=== PATIENT | female | born 1990 | race Caucasian/White ===

== ENCOUNTER 2022-11-02 08:26 | Emergency (ER) | payer MEDICAID ==
[~2022-11-02] VITALS: Ht 160 cm; Wt 90.0 kg
[2022-11-02 08:32] VITALS: BP 115/78
[2022-11-02] MEDS ORDERED: KETOROLAC 30MG/ML VIAL IV STA (08:38)
[2022-11-02] MEDS ORDERED: SODIUM CHLORIDE 0.9% 1,000 ML IV ONE (08:45)
[2022-11-02 09:12] LABS: BASOPHILS % 0.4 % (0.0-2.0); EOSINOPHILS % 2.3 % (0.0-5.0); HEMATOCRIT. 39.7 % (36.0-48.0); HEMOGLOBIN. 13.6 g/dL (12.0-16.0); LYMPHOCYTES % 22.3 % (20.0-50.0); MEAN CORPUSCULAR HEMOGLOBIN 29.4 pg (28.0-32.0); MEAN CORPUSCULAR VOLUME 86.1 fL (81.0-99.0); MEAN PLATELET VOLUME 8.7 fl (7.4-10.4); PLATELET 291 x1000/uL (130-400); RED BLOOD CELL COUNT 4.61 mill/uL (4.2-5.4); RED CELL DISTRIBUTION WIDTH 13.5 % (11.6-14.6)
[2022-11-02 09:26] LABS: CHLORIDE 107 mEq/L (98-107)
[2022-11-02 09:39] LABS: HCG SCREEN NEGATIVE
[2022-11-02 09:53] LABS: CLARITY URINE CLOUDY (CLEAR); COLOR URINE YELLOW (YELLOW); KETONES URINE TRACE (NEGATIVE); LEUKOCYTE ESTERASE URINE 1+ (NEGATIVE); NITRITE URINE NEGATIVE (NEGATIVE); OCCULT BLOOD URINE NEGATIVE (NEGATIVE); PH URINE 6.5 (4.5-8.0); PROTEIN URINE TRACE (NEGATIVE); SPECIFIC GRAVITY URINE 1.025 (1.005-1.030)
[2022-11-02] MEDS ORDERED: OMEP20CA14 MT (13:42)
[2022-11-02] MEDS ORDERED: SUCR1TAB MT (13:43)
[2022-11-02] MEDS ORDERED: ONDA4TAB50 MT (13:49)
== END 2022-11-02 15:45 | disposition home or self-care (01) ==
LOC: ER 08:26
DX: K85.90 Acute pancreatitis without necrosis or infection, unspecified (principal); K21.9 Gastro-esophageal reflux disease without esophagitis
CPT/HCPCS: 36415; 74176; 80053; 81003; 81025; 83690; 84703; 85025; 99284; J7030; Z7610